=== PATIENT | female | born 1995 | race Caucasian/White ===

== ENCOUNTER 2016-09-19 18:46 | Emergency (ER) | payer OTHER ==
[2016-09-19 19:02] VITALS: BP 132/83
--- NOTE | 2016-09-19 20:12 | UC ---
Neck Pain HPI - HPI Summary HPI Summary: complaint of falling down stairs at 1:15 this afternoon slipped backwards onto he bottom and fell down the steps on her left side no LOC , doesn't think she hit her head left side of neck is painful left back of head is painful feels fatigued feels slightly nauseated - no vomiting denies vision changes hasn't taken any medication for pain - History of Current Complaint Chief Complaint: UC Stated Complaint: HEAD INJURY Time Seen by Provider: 09/19/16 18:56 Hx Obtained From: Patient Hx Last Menstrual Period: 08/31/16 - Allergies/Home Medications Allergies/Adverse Reactions: Allergies Allergy/AdvReac Type Severity Reaction Status Date / Time No Known Allergies Allergy Verified 09/19/16 18:53 PMH/Surg Hx/FS Hx/Imm Hx Previously Healthy: Yes - Surgical History Surgical History: Yes Surgery Procedure, Year, and Place: APPY. TONSILECTOMY. LEFT HAND SX - Family History Known Family History: Negative: Cardiac Disease, Hypertension, Respiratory Disease - Social History Occupation: Student Alcohol Use: Occasionally Substance Use Type: None Smoking Status (MU): Never Smoked Tobacco Review Of Systems Constitutional: Positive: Negative Skin: Positive: Negative Eyes: Positive: Negative ENT: Positive: Negative Respiratory: Positive: Negative Cardiovascular: Positive: Negative Gastrointestinal: Positive: Negative Genitourinary: Positive: Negative Musculoskeletal: Positive: Other: - neck apin Neurological: Positive: Headache Psychological: Positive: Negative All Other Systems Reviewed And Are Negative: Yes Physical Exam Triage Information Reviewed: Yes Appearance: No Pain Distress, Well-Nourished Vital Signs: Initial Vital Signs Temp 97.6 F 09/19/16 18:54 Pulse 72 09/19/16 18:54 Resp 16 09/19/16 18:54 BP 132/83 09/19/16 18:54 Pulse Ox 100 09/19/16 18:54 Vital Signs Reviewed: Yes Eyes: Positive: Conjunctiva Clear, Other: - PERRLA ENT: Positive: Pharynx normal, TMs normal. Negative: Nasal congestion Neck: Positive: Other: - no c-spine tenderness, full ROM Respiratory: Positive: Lungs clear, Normal breath sounds, No respiratory distress Cardiovascular: Positive: RRR, No Murmur, Pulses Normal Abdomen Description: Positive: Nontender, Soft Bowel Sounds: Positive: Present Musculoskeletal: Positive: Other: - left side of trapezuis slightly tender pain increases with movement of left arm Neurological: Positive: Alert, Other: - CN ll-Xll normal negative [place] Psychological Exam: Normal Skin Exam: Normal Neck Pain Course/Dx - Course Course Of Treatment: exam completed. no cspine tenderness - no indication for imaging at this time. neuro exam normal no indication for ct scan. conservative treatment with NSAIDS followup if no improvement - Differential Dx/Diagnosis Differential Dx/HQI/PQRI: Cervical Fracture, Intracranial Bleed, Sprain, Strain Provider Diagnoses: neck pain Discharge - Discharge Plan Condition: Stable Disposition: HOME Patient Education Materials: Neck Pain (ED) Forms: *School Release Referrals: No Primary Care Phys,NOPCP [Primary Care Provider] - Additional Instructions: Increase fluids and rest Take acetaminophen or ibuprofen for fever or pain Please review your discharge instructions. If your symptoms do not improve please call your primary care provider or return to urgent care
[2016-09-19] MEDS ORDERED: Ibuprofen TAB* 400 MG PO ONE (20:13)
== END 2016-09-19 20:27 | disposition home or self-care (01) ==
LOC: UCCORT 18:46
DX: M54.2 Cervicalgia (principal)
CPT/HCPCS: 99212; A9270-GY; G0463